=== PATIENT | female | born 1970 | race Caucasian/White ===

== ENCOUNTER 2023-05-16 19:05 | Emergency (ER) | payer OTHER ==
[~2023-05-16] VITALS: Ht 160 cm; Wt 57.2 kg
[2023-05-16] MEDS ORDERED: PREDNISONE 20 MG TABLET PO ONE (21:00)
[2023-05-16] MEDS ORDERED: IVERMECTIN 3 MG TAB PO SCH (21:00)
[2023-05-16] MEDS ORDERED: CLINDAMYCIN 150 MG CAP PO ONE (21:00)
[2023-05-16] MEDS ORDERED: DIPHENHYDRAMINE HCL 25 MG CAPSULE PO ONE (21:00)
[2023-05-16] MEDS ORDERED: FAMOTIDINE 20MG TAB PO ONE (21:30)
[2023-05-16 21:33] LABS: BASOPHILS # (AUTO) 0.07 K/uL (0.00-0.20); BASOPHILS % (AUTO) 0.6 % (0.0-5.0); EOSINOPHILS # (AUTO) 0.01 K/uL (0.00-0.70); EOSINOPHILS % (AUTO) 0.1 % (0.0-8.0); HEMATOCRIT 41.3 % (36-48); IMMATURE GRANULOCYTE ABSOLUTE 0.04 K/uL (0-1); LYMPHOCYTES # (AUTO) 0.9 K/uL (1.0-4.8); LYMPHOCYTES % (AUTO) 7.7 % (21.0-51.0); MEAN CORPUSCULAR HEMOGLOBIN 29.2 pg (27.0-33.0); MEAN CORPUSCULAR HGB CONC 32.7 g/dL (32.0-36.0); MEAN CORPUSCULAR VOLUME 89.4 fL (79-99); MONOCYTES # (AUTO) 0.5 K/uL (0.1-1.0); MONOCYTES % (AUTO) 4.2 % (3.0-13.0); NEUTROPHILS # (AUTO) 10.6 K/uL (1.8-7.7); NEUTROPHILS % (AUTO) 87.1 % (40.0-77.0); PLATELET COUNT (AUTO) 610 K/uL (130-400); RED BLOOD CELL COUNT(AUTO) 4.62 MIL/uL (4.00-5.50); WHITE BLOOD COUNT (AUTO) 12.2 K/uL (4.8-10.8)
[2023-05-16 21:41] LABS: CREATININE 0.9 mg/dL (0.5-1.5); POTASSIUM 3.4 mmol/L (3.5-5.1)
[2023-05-16 21:46] LABS: ALBUMIN 3.8 g/dL (3.5-5.0); BILIRUBIN,TOTAL 0.3 mg/dL (0.2-1.0); TOTAL PROTEIN, SERUM 8.5 g/dL (6.0-8.3)
[2023-05-16] MEDS ORDERED: IVER3TAB PO (22:18)
[2023-05-16] MEDS ORDERED: CLIN-141 PO (22:18)
[2023-05-16] MEDS ORDERED: DIPH-1242 PO (22:18)
[2023-05-16] MEDS ORDERED: FAMO20TA8 PO (22:18)
[2023-05-16 22:34] VITALS: BP 132/72; PULSE 82; RESP 16; O2SAT 98
== END 2023-05-16 22:36 | disposition home or self-care (01) ==
LOC: EDH 19:05
DX: H60.11 Cellulitis of right external ear (principal); L29.9 Pruritus, unspecified; E11.9 Type 2 diabetes mellitus without complications; I10 Essential (primary) hypertension; F41.9 Anxiety disorder, unspecified; Z20.7 Contact with and (suspected) exposure to pediculosis, acariasis and other infestations
CPT/HCPCS: 99284; 80053; 85025; 83605; 36415; Q0163

== ENCOUNTER 2023-05-29 17:07 | Emergency (ER) | payer OTHER ==
[~2023-05-29] VITALS: Ht 157.5 cm; Wt 57.2 kg
[~2023-05-29 17:07] MED LIST: CLIN-141 PO; DIPH-1242 PO; FAMO20TA8 PO; IVER3TAB PO
[2023-05-29] MEDS ORDERED: HYDR-3421 PO (19:50)
[2023-05-29] MEDS ORDERED: HYDROXYZINE 25 MG TABLET PO ONE (20:00)
[2023-05-29 20:16] VITALS: BP 153/89; PULSE 82; RESP 18; O2SAT 98
== END 2023-05-29 20:25 | disposition home or self-care (01) ==
LOC: EDH 17:07
DX: R21 Rash and other nonspecific skin eruption (principal); E11.9 Type 2 diabetes mellitus without complications; E78.00 Pure hypercholesterolemia, unspecified; H40.9 Unspecified glaucoma; Z79.899 Other long term (current) drug therapy